=== PATIENT | female | born 1940 | race Caucasian/White ===

== ENCOUNTER 2022-05-02 08:04 | Emergency (ER) | payer MEDICARE, BC, SELFPAY ==
--- NOTE | 2022-05-02 08:17 | ED.URI ---
HPI - URI/Sore Throat General Chief Complaint: Upper Respiratory Infection Stated Complaint: chest congestion Time Seen by Provider: 05/02/22 08:17 Source: patient and RN notes reviewed History of Present Illness HPI Narrative: Patient is an 81-year-old female who presents to urgent care with complaints of facial pressure and chest congestion that started yesterday. Patient has been taking allergy medication for her symptoms. Denies any fever, nausea or vomiting. No other acute complaints. No acute distress noted. Patient aware of the plan of care. Some parts of this dictation were generated by voice recognition software and may contain typographical and/or grammatical inaccuracies. Related Data Home Medications Medication Instructions Recorded Confirmed No Home Medications 05/02/22 12 Allergies Allergy/AdvReac Type Severity Reaction Status Date / Time Sulfa (Sulfonamide Allergy Rash Verified 05/02/22 08:22 Antibiotics) codeine AdvReac Nausea and Verified 05/02/22 08:22 Vomiting Review of Systems Review of Systems: CONSTITUTIONAL: Denies fever, chills, or sweats. EYES: Denies visual changes, redness, or discharge. ENT: Denies rhinorrhea, sore throat, or otalgia. reports mild facial congestion CARDIOVASCULAR: Denies chest pain, palpitations, or edema. RESPIRATORY: Reports cough without dyspnea GASTROINTESTINAL: Denies abdominal pain, nausea, vomiting, or diarrhea. GENITOURINARY: Denies dysuria or hematuria. SKIN: Denies rash or itching. MUSCULOSKELETAL: Denies back pain, joint pain, or myalgia. NEUROLOGIC: Denies headache, numbness, or weakness. All other systems reviewed are negative, except as documented in HPI. PMFSH Comments At the time of my signature, I reviewed and agree with the nursing past medical, surgical, social, and family history. There is no relevant family history pertinent to the patient complaint. Exam Narrative: GENERAL: This is a well-nourished, well-developed patient, in no apparent distress. HEAD: normocephalic, atraumatic. EYES: PERRL. Sclera clear/white. Vision is grossly intact. EARS: External ears normal, auditory canals clear and without drainage, TMs normal without perforation. Hearing grossly intact. NOSE: External nose normal with no obvious nasal discharge, nares without redness, no rhinorrhea. THROAT: Mucous membranes moist, posterior pharynx clear. mild postnasal drainage NECK: Neck supple, non-tender without lymphadenopathy CARDIOVASCULAR: Regular rate and rhythm RESPIRATORY: Clear to auscultation. Breath sounds equal bilaterally. No wheezes, rales, or rhonchi. SKIN: warm, intact with no suspicious lesions or rash, good texture and turgor. NEURO: awake, alert, and oriented to person, place and time. There were no obvious focal neurologic abnormalities. EXTREMITIES: No clubbing, cyanosis, or edema. Course Course Level of Care: Express Care Visit Vital Signs Vital signs: Vital Signs Temperature 97.4 F L 05/02/22 08:18 Pulse Rate 74 05/02/22 08:18 Respiratory Rate 20 05/02/22 08:18 Blood Pressure 157/103 H 05/02/22 08:18 Pulse Oximetry 99 05/02/22 08:18 Oxygen Delivery Room Air 05/02/22 08:18 Temperature 97.4 F L 05/02/22 08:18 Pulse Rate 74 05/02/22 08:18 Respiratory Rate 20 05/02/22 08:18 Blood Pressure 157/103 H 05/02/22 08:18 Pulse Oximetry 99 05/02/22 08:18 Oxygen Delivery Room Air 05/02/22 08:18 reviewed- Patient is informed that they may have pre-hypertension or hypertension based on a blood pressure reading in the department. I recommend the patient call the primary care provider listed on their discharge instructions or a physician of their choice this week to arrange follow-up for further evaluation of possible pre-hypertension or hypertension. MDM - URI/Sore Throat MDM Narrative Medical decision making narrative: advised patient continue the daily allergy medication. Use Flonase nasal spra
[2022-05-02 08:18] VITALS: BP 157/103; PULSE 74; RESP 20; TEMP 36.3; O2SAT 99
== END 2022-05-02 08:54 | disposition home or self-care (01) ==
PROVIDERS: Emergency Provider Nurse Practitioner Family; PCP Hospitalist
DX: J00 Acute nasopharyngitis [common cold] (principal); I10 Essential (primary) hypertension; E03.9 Hypothyroidism, unspecified
CPT/HCPCS: 99211; G0463